=== PATIENT | male | born 1995 | race African-American/Black ===

== ENCOUNTER 2017-09-23 15:55 | Emergency (ER) | payer SELFPAY ==
--- NOTE | 2017-09-23 16:31 | RAD REPORT ---
EXAM DESCRIPTION: RAD - Ankle Left 3 View - 09/23/2017 4:23 pm CLINICAL HISTORY: Ankle twisting injury. COMPARISON: None. FINDINGS: No fracture or dislocation is seen. Small ankle joint effusion is seen. Moderate lateral s oft tissue swelling is seen.
--- NOTE | 2017-09-23 16:44 | EDPHYS ---
Physician Documentation [facility] Name: Juan Francisco Em Age: 22 yrs Sex: Male : 1995 Arrival Date: 09/23/2017 Time: 16:00 Bed 14 Private MD: ED Physician Juma Tomas HPI: 09/23 16:33 This 22 yrs old Black Male presents to ER via EMS with complaints of Ankle Injury. cp 16:33 The patient presents with an injury, pain, that is acute. The complaints affect the cp left ankle. Onset: The symptoms/episode began/occurred just prior to arrival. Context: The problem was sustained at a sports field or court, resulted from a mis-step by the patient, The mechanism of injury involved inversion of the affected ankle. The patient is unable to bear weight. must have assistance. Associated signs and symptoms: Pertinent negatives: calf tenderness, fever, numbness, rash. Modifying factors: the symptoms are aggravated by movement. Severity of symptoms: in the emergency department the symptoms are unchanged, despite EMS interventions. Historical: - Allergies: 16:03 PENICILLINS; ch 16:03 Amoxicillin; ch - Home Meds: 16:03 None [Active]; ch - PMHx: 16:03 None; ch - PSHx: 16:03 R elbow; ch - Immunization history:: Adult Immunizations up to date. - Social history:: Smoking status: Patient/guardian denies using tobacco, Patient/guardian denies using alcohol, street drugs. - Ebola Screening: : Patient negative for fever greater than or equal to 101.5 degrees Fahrenheit, and additional compatible Ebola Virus Disease symptoms Patient denies exposure to infectious person Patient denies travel to an Ebola-affected area in the 21 days before illness onset No symptoms or risks identified at this time. ROS: 16:35 Eyes: Negative for injury, pain, redness, and discharge. cp 16:35 Constitutional: Negative for body aches, chills, fever, poor PO intake. 16:35 ENT: Negative for drainage from ear(s), ear pain, sore throat, difficulty swallowing, difficulty handling secretions. 16:35 Neck: Negative for pain with movement, pain at rest, stiffness, tenderness, bony tenderness. 16:35 Cardiovascular: Negative for chest pain. 16:35 Respiratory: Negative for cough, shortness of breath, wheezing. 16:35 Abdomen/GI: Negative for abdominal pain, nausea, vomiting, and diarrhea. 16:35 Back: Negative for pain at rest, pain with movement, radiated pain. 16:35 MS/extremity: Positive for pain, swelling, tenderness, of the left lateral ankle, Negative for paresthesias. 16:35 Skin: Negative for cellulitis, rash. 16:35 Neuro: Negative for altered mental status, headache, numbness. 16:35 All other systems are negative. Exam: 16:38 Head/Face: Normocephalic, atraumatic. cp 16:38 Constitutional: The patient appears in no acute distress, alert, awake, non-toxic, well developed, well nourished. 16:38 Eyes: Periorbital structures: appear normal, Conjunctiva: normal, no exudate, no injection, Lids and lashes: appear normal, bilaterally. 16:38 ENT: External ear(s): are unremarkable, Nose: is normal, Mouth: is normal, Posterior pharynx: is normal, airway is patent. 16:38 Neck: ROM/movement: is normal, without pain, no range of motions limitations, no nuchal rigidity. 16:38 Chest/axilla: Inspection: normal. 16:38 Cardiovascular: Rate: normal, Rhythm: regular. 16:38 Respiratory: the patient does not display signs of respiratory distress, Respirations: normal, no use of accessory muscles, no retractions, no splinting, no tachypnea. 16:38 Abdomen/GI: Exam negative for discomfort, distension, guarding, Inspection: abdomen appears normal. 16:38 Musculoskeletal/extremity: Joints: All joints are normal except the left ankle displays painful range of motion, swelling, tenderness, Achilles tendon palpated and intact, no pain palpated at proximal left fibula or base of left fifth metatarsal. 16:38 Skin: cellulitis, is not appreciated, no rash present. Vital Signs: 16:03 BP 115 / 76; Pulse 61; Resp 18; Temp 98.3; Pulse Ox 99% on R/A; Pain 4/10; ch 16:54 BP 120 / 65; Pulse 64; Resp 14; Temp 97.9; Pulse Ox 99% on R/A; Pain 4/10; ch MDM: 16:06 Patient medically screened. cp 16:41 Differential diagnosis: fracture, sprain, dislocation. Data reviewed: vital signs, cp nurses notes, radiologic studies, plain films, and as a result, I will discharge patient. 09/23 16:06 Order name: XRAY Ankle LEFT 3 view; Complete Time: 16:44 09/23 16:45 Interpretation: Report reviewed. cp 09/23 16:33 Order name: Walking boot; Complete Time: 16:56 cp 09/23 16:33 Order name: Crutches; Complete Time: 16:56 cp Administered Medications: 16:56 Drug: Ibuprofen 800 mg Route: PO; Disposition: 18:16 Co-signature as Attending Physician, Juma Tomas MD. rn Disposition: 09/23/17 16:43 Discharged to Home. Impression: Sprain of ankle - Left. - Condition is Stable. - Discharge Instructions: Elastic Bandage and RICE, Ankle Sprain. - Prescriptions for Ibuprofen 800 mg Oral Tablet - take 1 tablet by ORAL route every 8 hours As needed take with food; 30 tablet. Tramadol 50 mg Oral Tablet - take 1 tablet by ORAL route every 8 hours as needed; 12 tablet. - Work release form, Medication Reconciliation Form, Thank You Letter, Antibiotic Education, Prescription Opioid Use form. - Follow up: Jeramy Noble MD; When: 1 week; Reason: Recheck today's complaints. - Problem is new. - Symptoms have improved. Signatures: Dispatcher [employer] Dulce Maria Caldwell, ANDREA MENDEZ Juma Tomas MD MD rn Page, Corey, PA PA cp Corrections: (The following items were deleted from the chart) 17:57 16:43 09/23/2017 16:43 Discharged to Home. Impression: Sprain of ankle - Left. Condition is Stable. Forms are Medication Reconciliation Form, Thank You Letter, Antibiotic Education, Prescription Opioid Use. Follow up: Jeramy Noble; When: 1 week; Reason: Recheck today's complaints. Problem is new. Symptoms have improved. cp
--- NOTE | 2017-09-23 16:44 | ER ---
Nurse's Notes [facility] Name: Juan Francisco Em Age: 22 yrs Sex: Male : 1995 Arrival Date: 09/23/2017 Time: 16:00 Bed 14 Private MD: Diagnosis: Sprain of ankle-Left Presentation: 09/23 16:00 Presenting complaint: Patient states: playing basketball and jumped, landed on his L ch ankle around 1500. swelling to the area. Transition of care: patient was not received from another setting of care. Onset of symptoms was September 23, 2017. Risk Assessment: Do you want to hurt yourself or someone else? Patient reports no desire to harm self or others. Initial Sepsis Screen: Does the patient meet any 2 criteria? No. Patient's initial sepsis screen is negative. Does the patient have a suspected source of infection? No. Patient's initial sepsis screen is negative. Care prior to arrival: None. 16:00 Method Of Arrival: EMS: [facility] 16:00 Acuity: CHAVEZ 4 ch Triage Assessment: 16:03 General: Appears in no apparent distress. comfortable, Behavior is calm, cooperative, ch appropriate for age. Pain: Complains of pain in left lateral ankle, left Achilles, left medial ankle and anterior aspect of left ankle Pain currently is 5 out of 10 on a pain scale. Neuro: No deficits noted. Respiratory: Airway is patent Respiratory effort is even, unlabored. Musculoskeletal: Capillary refill < 3 seconds, in bilateral fingers. toes. Range of motion: limited in left ankle Swelling present in left lateral ankle, left medial ankle and anterior aspect of left ankle. Historical: - Allergies: 16:03 PENICILLINS; 16:03 Amoxicillin; - Home Meds: 16:03 None [Active]; ch - PMHx: 16:03 None; ch - PSHx: 16:03 R elbow; - Immunization history:: Adult Immunizations up to date. - Social history:: Smoking status: Patient/guardian denies using tobacco, Patient/guardian denies using alcohol, street drugs. - Ebola Screening: : Patient negative for fever greater than or equal to 101.5 degrees Fahrenheit, and additional compatible Ebola Virus Disease symptoms Patient denies exposure to infectious person Patient denies travel to an Ebola-affected area in the 21 days before illness onset No symptoms or risks identified at this time. Screenin:54 Abuse screen: Denies threats or abuse. Denies injuries from another. Nutritional screening: No deficits noted. Tuberculosis screening: No symptoms or risk factors identified. Fall Risk None identified. Assessment: 16:54 Reassessment: Patient appears in no apparent distress at this time. Patient and/or ch family updated on plan of care and expected duration. Pain level reassessed. Patient is alert, oriented x 3, equal unlabored respirations, skin warm/dry/pink. Reassessment: No changes from previously documented assessment. General: Appears in no apparent distress. comfortable, Behavior is calm, cooperative, appropriate for age. 17:16 Reassessment: Patient appears in no apparent distress at this time. Patient and/or ch family updated on plan of care and expected duration. Pain level reassessed. Patient is alert, oriented x 3, equal unlabored respirations, skin warm/dry/pink. Patient states feeling better. Patient states symptoms have improved. 17:16 Reassessment: Patient appears in no apparent distress at this time. AWAITING PROVIDER TO PRINT PRESCRIPTIONS PRIOR TO DISCHARGE. 17:27 Reassessment: Patient appears in no apparent distress at this time. pt is speaking on his phone now. AWAITING PT TO FINISH PHONE CONVERSATION WITH HIS WORK PRIOR TO DISCHARGE. 17:56 Reassessment: Patient appears in no apparent distress at this time. Patient and/or ch family updated on plan of care and expected duration. Pain level reassessed. Patient is alert, oriented x 3, equal unlabored respirations, skin warm/dry/pink. I take pt phone away and tell him I will return it when I have finished his discharge instructions. pt verb understanding. pt will be discharged home now. Vital Signs: 16:03 BP 115 / 76; Pulse 61; Resp 18; Temp 98.3; Pulse Ox 99% on R/A; Pain 4/10; ch 16:54 BP 120 / 65; Pulse 64; Resp 14; Temp 97.9; Pulse Ox 99% on R/A; Pain 4/10; ED Course: 16:00 Patient arrived in ED. 16:01 Triage completed. 16:03 Arm band placed on left wrist. Patient placed in an exam room, on a stretcher. 16:06 Dmitry Hendricks PA is PHCP. 16:06 Juma Tomas MD is Attending Physician. cp 16:20 X-ray completed. Portable x-ray completed in exam room. Patient tolerated procedure kp1 well. 16:21 XRAY Ankle LEFT 3 view In Process Unspecified. EDMS 16:42 Jeramy Noble MD is Referral Physician. cp 16:53 Dulce Maria Cruz, RN is Primary Nurse. ch 16:54 No apparent distress. Resting quietly. ch 16:54 Patient has correct armband on for positive identification. Bed in low position. Call light in reach. Side rails up X 1. Pulse ox on. NIBP on. Warm blanket given. 16:54 No provider procedures requiring assistance completed. Patient did not have IV access ch during this emergency room visit. Crutch training done. 3D boot applied to left foot. Administered Medications: 16:56 Drug: Ibuprofen 800 mg Route: PO; Outcome: 16:43 Discharge ordered by . cp 17:57 Patient left the ED. Signatures: Dispatcher [employer] EDND Dulce Maria Cruz, RN RN Dmitry Hendricks PA PA cp Isabela Vivas kp1
[2017-09-23] MEDS ORDERED: IBUPROFEN 200 MG TAB PO ONE (17:00)
== END 2017-09-23 17:57 | disposition home or self-care (01) ==
LOC: ER 15:55
DX: S93.402A Sprain of unspecified ligament of left ankle, initial encounter (principal); X58.XXXA Exposure to other specified factors, initial encounter; Y93.67 Activity, basketball; Y92.310 Basketball court as the place of occurrence of the external cause; Z88.1 Allergy status to other antibiotic agents
CPT/HCPCS: 99284